=== PATIENT | female | born 2000 | race African-American/Black ===

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

== ENCOUNTER 2021-03-13 19:19 | Emergency (ER) | payer OTHER ==
[2021-03-13 19:34] VITALS: BP 115/79; PULSE 117; TEMP 99.6; BMI 33.3
[2021-03-13] MEDS ORDERED: SODIUM CHLORIDE 0.9% 500 ML INFUS.BAG IV ONE (20:08)
[2021-03-13] MEDS ORDERED: FAMOTIDINE 20 MG/50 ML IVPB 20 MG/50 ML MG IVPB ONE ×2 (20:10→20:24)
[2021-03-13] MEDS ORDERED: ACETAMINOPHEN 1000 MG/100 ML VIAL IVPB ONE (20:10)
[2021-03-13] MEDS ORDERED: ONDANSETRON 4 MG/2 ML VIAL IVPUSH ONE (20:11)
[2021-03-13] MEDS ORDERED: ONDANSETRON 4 MG/2 ML VIAL ONE (20:20)
[2021-03-13] MEDS ORDERED: ACETAMINOPHEN INJECTION 100 ML IVPB ONE (20:20)
[2021-03-13 21:22] LABS: BASO % 0.2 % (0-2.0); EOS % 0.1 % (0-4.5); HEMATOCRIT 38.8 % (32.4-45.2); HEMOGLOBIN 12.9 GM/dL (10.7-15.3); LYMPH % 13.9 % (8-40); MCH 25.9 pg (25.7-33.7); MCHC 33.2 g/dl (32.0-36.0); MEAN CELL VOLUME 77.8 fl (80-96); MEAN PLT VOLUME 8.2 fl (7.5-11.1); MONO % 10.2 % (3.8-10.2); NEUT % 75.6 % (42.8-82.8); PLATELET COUNT 280 10^3/uL (134-434); RBC 4.98 M/mm3 (3.60-5.2); RDW 14.2 % (11.6-15.6); WHITE BLOOD COUNT 6.9 K/mm3 (4.0-10.0)
[2021-03-13 21:25] LABS: PH,URINE 6.5 (5.0-8.0); URINE APPEARANCE CLEAR; URINE BILIRUBIN NEGATIVE (NEGATIVE); URINE COLOR YELLOW; URINE GLUCOSE (UA) NEGATIVE (NEGATIVE); URINE KETONE TRACE (NEGATIVE); URINE LEUK ESTERASE NEGATIVE (NEGATIVE); URINE NITRITE NEGATIVE (NEGATIVE); URINE PROTEIN NEGATIVE (NEGATIVE); URINE UROBILINOGEN 0.2 mg/dL (0.2-1.0)
[2021-03-13 21:27] LABS: HCG,QUALITATIVE URINE Negative
[2021-03-13 21:55] LABS: ALBUMIN 3.4 g/dl (3.4-5.0); CALCIUM 8.6 mg/dL (8.5-10.1)
[2021-03-13 21:56] LABS: MAGNESIUM 1.9 mg/dL (1.8-2.4)
[2021-03-13 21:59] LABS: CREATININE 0.7 mg/dL (0.55-1.3)
[2021-03-13 22:00] LABS: BILIRUBIN,TOTAL 0.5 mg/dL (0.2-1); TOT PROT 7.6 g/dl (6.4-8.2)
[2021-03-13] MEDS ORDERED: LACTATED RINGERS SOLUTION 1000 ML INFUS.BAG IV ONE (22:07)
== END 2021-03-14 00:35 | disposition home or self-care (01) ==
LOC: JER 19:19
PROC: 3E033GC Introduction of Other Therapeutic Substance into Peripheral Vein, Percutaneous Approach (ICD-10-PCS; principal; 2021-03-13)
DX: R19.7 Diarrhea, unspecified (principal)
CPT/HCPCS: 36415; 80053; 81003; 83735; 84703; 85025; 87086; 87804; 99284-25; C9803; J0131; U0003; U0005

== ENCOUNTER 2021-06-12 15:27 | Emergency (ER) | payer OTHER ==
[2021-06-12 15:37] VITALS: BP 115/78; PULSE 99; TEMP 98.8; BMI 32.8
[2021-06-12] MEDS ORDERED: methylPREDNISolone NA SUCC 125 MG/2 ML VIAL IVPB ONE (16:20)
[2021-06-12] MEDS ORDERED: FAMOTIDINE 20 MG/50 ML IVPB 20 MG/50 ML MG IVPB ONE ×2 (16:21→16:27)
[2021-06-12] MEDS ORDERED: methylPREDNISolone NA SUCC 125 MG/2 ML VIAL ONE (16:27)
[2021-06-12] MEDS ORDERED: SODIUM CHLORIDE 0.9% 500 ML INFUS.BAG IV ONE (17:16)
[2021-06-12 18:11] LABS: BASO % 0.2 % (0-2.0); EOS % 1.8 % (0-4.5); HEMATOCRIT 34.6 % (32.4-45.2); HEMOGLOBIN 11.3 GM/dL (10.7-15.3); MCH 25.3 pg (25.7-33.7); MCHC 32.8 g/dl (32.0-36.0); MEAN CELL VOLUME 77.4 fl (80-96); MEAN PLT VOLUME 8.2 fl (7.5-11.1); MONO % 6.6 % (3.8-10.2); NEUT % 53.4 % (42.8-82.8); PLATELET COUNT 341 10^3/uL (134-434); RBC 4.48 M/mm3 (3.60-5.2); WHITE BLOOD COUNT 6.4 K/mm3 (4.0-10.0)
[2021-06-12 18:26] LABS: CALCIUM 9.2 mg/dL (8.5-10.1)
[2021-06-12 18:27] LABS: ALBUMIN 3.8 g/dl (3.4-5.0); BLOOD UREA NITROGEN 9.5 mg/dL (7-18)
[2021-06-12 18:30] LABS: CREATININE 0.5 mg/dL (0.55-1.3)
[2021-06-12 18:32] LABS: BILIRUBIN,TOTAL 0.4 mg/dL (0.2-1); TOT PROT 7.4 g/dl (6.4-8.2)
== END 2021-06-12 21:11 | disposition home or self-care (01) ==
LOC: JER 15:27
PROC: 3E033GC Introduction of Other Therapeutic Substance into Peripheral Vein, Percutaneous Approach (ICD-10-PCS; principal; 2021-06-12)
DX: T78.40XA Allergy, unspecified, initial encounter (principal)
CPT/HCPCS: 36415; 71046-TC-FY; 80053; 84484; 84703; 85025; 93005; 93010; 99285-25

== ENCOUNTER 2021-07-13 18:41 | Emergency (ER) | payer OTHER ==
[2021-07-13 18:57] VITALS: BP 104/76; PULSE 91; TEMP 97.8; BMI 31.3
[2021-07-13] MEDS ORDERED: MECLIZINE HCL 25 MG TABLET (FP) PO ONE (21:18)
[2021-07-13] MEDS ORDERED: MECLIZINE HCL 25 MG TABLET (FP) ONE (21:26)
[2021-07-13 21:45] LABS: URINE APPEARANCE TURBID; URINE BILIRUBIN NEGATIVE (NEGATIVE); URINE COLOR RED; URINE GLUCOSE (UA) NEGATIVE (NEGATIVE)
[2021-07-13 21:48] LABS: HCG,QUALITATIVE URINE Negative
[2021-07-13 22:01] LABS: URINE KETONE TRACE (NEGATIVE)
[2021-07-13 22:02] LABS: HYALINE CASTS 0.25 /uL (0-3.1); URINE BACTERIA 28.5 /uL (0-1359); URINE LEUK ESTERASE NEGATIVE (NEGATIVE); URINE NITRITE NEGATIVE (NEGATIVE); URINE PROTEIN TRACE (NEGATIVE); URINE RBC 15045.6 /uL (0-23.9); URINE UROBILINOGEN 0.2 mg/dL (0.2-1.0); URINE WBC 25.8 /uL (0-25.8)
== END 2021-07-13 22:49 | disposition home or self-care (01) ==
LOC: JER 18:41
DX: R55 Syncope and collapse (principal)
CPT/HCPCS: 81003; 84703; 99283-25

== ENCOUNTER 2022-01-09 01:15 | Emergency (ER) | payer OTHER ==
[2022-01-09 01:30] VITALS: BP 116/68; PULSE 95; RESP 22; TEMP 97.7; BMI 31.1
[2022-01-09] MEDS ORDERED: DEXAMETHASONE SOD PHOSPHATE 10 MG/1 ML VIAL IVPUSH ONE (02:37)
[2022-01-09] MEDS ORDERED: DEXAMETHASONE SOD PHOSPHATE 10 MG/1 ML VIAL IM ONE (02:43)
[2022-01-09] MEDS ORDERED: DEXAMETHASONE SOD PHOSPHATE 10 MG/1 ML VIAL ONE (02:44)
[2022-01-09] MEDS ORDERED: AMOXICILLIN 500 MG CAPSULE (FP) PO ONE (03:25)
[2022-01-09] MEDS ORDERED: AMOXICILLIN 500 MG CAPSULE (FP) ONE (03:29)
== END 2022-01-09 03:42 | disposition home or self-care (01) ==
LOC: JER 01:15
PROC: 3E023GC Introduction of Other Therapeutic Substance into Muscle, Percutaneous Approach (ICD-10-PCS; principal; 2022-01-09)
PROC: 3E033GC Introduction of Other Therapeutic Substance into Peripheral Vein, Percutaneous Approach (ICD-10-PCS; 2022-01-09)
DX: R07.0 Pain in throat (principal)
CPT/HCPCS: 99283-25; J1100

== ENCOUNTER 2023-03-25 17:32 | Emergency (ER) | payer OTHER ==
[2023-03-25 17:43] VITALS: BP 124/80; PULSE 98; RESP 18; TEMP 98.8; BMI 36.7
[2023-03-25] MEDS ORDERED: ACETAMINOPHEN 1000 MG/100 ML BAG IVPB ONE (18:02)
[2023-03-25] MEDS ORDERED: SODIUM CHLORIDE 0.9% 500 ML INFUS.BAG IV ONE (18:02)
[2023-03-25] MEDS ORDERED: FAMOTIDINE 20 MG/50 ML IVPB 20 MG/50 ML MG IVPB ONE ×2 (18:02→18:27)
[2023-03-25] MEDS ORDERED: ACETAMINOPHEN INJECTION 100 ML IVPB ONE (18:27)
[2023-03-25 18:48] LABS: HEMATOCRIT 38.6 % (32.4-45.2); HEMOGLOBIN 12.5 G/dL (10.7-15.3); MCH 25.1 pg (25.7-33.7); MCHC 32.5 g/dl (32.0-36.0); MEAN CELL VOLUME 77.4 fl (80-96); MEAN PLT VOLUME 8.1 fl (7.5-11.1); RBC 4.99 10^6/uL (3.60-5.2); WHITE BLOOD COUNT 8.7 10^3/uL (4.0-10.8)
[2023-03-25 19:00] LABS: PLATELET ESTIMATE ADEQUATE
[2023-03-25 19:06] LABS: ALBUMIN 4.2 g/dl (3.4-5.0); BILIRUBIN,TOTAL 0.5 mg/dl (0.2-1); CALCIUM 9.5 mg/dl (8.5-10.1); CREATININE 0.6 mg/dl (0.6-1.3); POTASSIUM 3.9 mmol/L (3.5-5.1); TOT PROT 7.2 g/dl (6.4-8.2)
== END 2023-03-25 22:01 | disposition home or self-care (01) ==
LOC: FER 17:32
PROC: 3E033GC Introduction of Other Therapeutic Substance into Peripheral Vein, Percutaneous Approach (ICD-10-PCS; principal; 2023-03-25)
PROC: 3E033NZ Introduction of Analgesics, Hypnotics, Sedatives into Peripheral Vein, Percutaneous Approach (ICD-10-PCS; 2023-03-25)
DX: R10.9 Unspecified abdominal pain (principal); K52.9 Noninfective gastroenteritis and colitis, unspecified; A05.9 Bacterial foodborne intoxication, unspecified
CPT/HCPCS: 36415; 80053; 81003; 83690; 84703; 85027; 87077; 87086; 99284-25